=== PATIENT | female | born 1965 | race African-American/Black ===

== ENCOUNTER 2018-08-26 06:59 | Inpatient (IN) ==
--- NOTE | 2018-08-26 07:54 | PROVIDER DOCUMENTATION ---
HPI-General Adult - General Chief Complaint: General Adult Stated Complaint: LEG PAIN/ABD PAIN Time Seen by Provider: 08/26/18 07:43 Source: patient Allergies/Adverse Reactions: Patient Allergies Allergy/AdvReac Type Severity Reaction Status Date / Time amlodipine besylate * Allergy SWELLING Verified 12/20/17 07:18 [From [facility]] latex Allergy SWELLING Verified 12/20/17 07:18 lisinopril Allergy SWELLING Verified 12/20/17 07:18 Penicillins Allergy SWELLING Verified 12/20/17 07:18 Home Medications: Home Medication List Medication Instructions Recorded Confirmed Last Taken Type Hydrochlorothiazide 25 mg PO DAILY #30 tablet 04/20/16 12/20/17 07/06/16 Rx Aspirin EC 81 mg PO DAILY #0 tablet 04/21/16 12/20/17 07/06/16 Rx ATORVAstatin [Lipitor] 40 mg PO QHS 06/07/16 12/20/17 07/06/16 History Metoprolol Tartrate 25 mg PO BID 06/07/16 12/20/17 07/06/16 History Pantoprazole Sodium 40 mg PO DAILY 06/07/16 12/20/17 07/06/16 History Dexlansoprazole [Dexilant] 60 mg PO DAILY #30 cap 12/21/17 Unknown Rx Sucralfate [Carafate] 1 gm PO AC + HS #120 tab 12/21/17 Unknown Rx - History of Present Illness -Gen Adult Quality of Pain: reports: cramping Severity: reports: moderate Onset/Duration: reports: gradual, 5 days ago Timing: reports: still present Modifying Factors: improves with: other (AT NIGHT) Associated Symptoms: reports: cough, fatigue, muscle aches, weakness Similar Symptoms Previously?: No Recently seen or treated by another doctor?: No Review of Systems - Adult - REVIEW OF SYSTEMS - ADULT Constitutional: reports: fatique. denies: fever Eyes: reports: no symptoms reported Ears, Nose, Mouth & Throat: reports: no symptoms reported Cardiovascular: reports: no symptoms reported. denies: chest pain Respiratory: reports: cough Gastrointestinal: reports: no symptoms reported Genitourinary: reports: frequency Musculoskeletal: reports: frequent leg cramps Integumentary: denies: itching, rash Neurological: reports: tremors. denies: seizure, slurred speech Psychiatric: reports: no symptoms reported Hematologic/Lymphatic: reports: no symptoms reported Allergic/Immunologic: reports: no symptoms reported Past History - Adult - PAST MEDICAL HISTORY-ADULT Review of Records: reports: Nursing Assessment Review Major Childhood Illnesses: reports: denies history Cardiovascular: reports: CAD, HTN, other (1 heart stents). denies: blood clots Respiratory: reports: denies history Gastrointestinal: reports: cancer (colon) Obstetrical/Gynecological: reports: denies history Genitourinary: reports: denies history Musculoskeletal: reports: denies history Neurological: reports: denies history Endocrine/Immune: reports: denies history Other Conditions: reports: denies history - PRIOR SURGERIES/PROCEDURES Surgical/Procedure History: reports: cardiac stent, hysterectomy, other (cyst removed) - PRIOR HOSPITALIZATIONS Prior Hospitalizations: reports: none - IMMUNIZATION STATUS Childhood Immunizations: See Nurse Assessment Flu Vaccine: See Nurse Assessment - FAMILY HISTORY Family History: reviewed, not pertinent Physical Exam-General - PHYSICAL EXAM-ADULT Initial Vital Signs Reviewed: Yes - CONSTITUTIONAL General Appearance: alert, no apparent distress - EYES Eyes: PERRL/EOMI - HEAD, EARS, NOSE, MOUTH & THROAT HENMT: normocephalic/atraumatic - NECK Neck: non-tender, supple - RESPIRATORY Respiratory: lungs clear, normal breath sounds - CARDIOVASCULAR Cardiovascular: normal peripheral pulses, regular rate, rhythm - GASTROINTESTINAL (ABDOMEN) Abdominal Exam: normal bowel sounds, non tender, soft - LYMPHATIC Lymphatic: no adenopathy - MUSCULOSKELETAL Back Exam: no CVA tenderness, no vertebral tenderness - SKIN Integumentary: normal color, normal turgor - NEUROLOGIC Neurologic: stake setter II-XII nml as tested, grossly normal, no motor/sensory deficits - PSYCHIATRIC Psych/Mental Status: normal mood/affect Progress - PLAN OF CARE/RESULTS Progress/Plan/Lab Results: Vital Signs - 8 hr 08/26/18 07:10 Temperature 99.5 F Pulse Rate 104 H Respiratory Rate 18 Blood Pressure 119/89 O2 Sat by Pulse Oximetry 97 Orders Category Date Time Status CHEST-PORTABLE [RAD] Stat Exams 08/26/18 07:49 Ordered CBC WITH ELECTRONIC DIFF [HEME] Stat Lab 08/26/18 07:49 Uncollected CK PROFILE [SP CHEM] Stat Lab 08/26/18 07:49 Ordered COMPREHENSIVE METABOLIC PANEL [CHEM] Stat Lab 08/26/18 07:49 Ordered Flu [INFLUENZA SCREEN PL] Stat Lab 08/26/18 07:[address] W/POSS RFLX CULT [URINALYSIS] Stat Lab 08/26/18 07:49 Uncollected Result Diagrams: 08/26/18 08:00 08/26/18 08:00 - CONSULTS/PCP/HOSPITALIST Notification #1 *Consult/PCP/Hospitalist*: Dr. Trevizo Time Discussed: 09:32 Consult Disposition: Admit Departure - Departure Date of Disposition Decision: 08/26/18 Time of Disposition Decision: 09:32 DIAGNOSIS: New onset type 2 diabetes mellitus, Leg cramps Disposition: ADMITTED INPATIENT 09 Certified Medical Emergency: Emergent Condition: Stable Referrals and Follow-Ups: Xiomara Clayton MD [Primary Care Provider] - - Critical Care Note This patient required my direct & personal management of CC.: Yes Total Time (mins): 30 Critical Care Statement: This patient required my direct personal management to treat or rule out processes, the absence of which, could potentiallly result in sudden, clinically significant life or limb threatening deterioration. Attestation - Physician/ SONI Attestation The physician spent face to face time with patient:: Yes Advanced Practice Provider documentation review:: Supervising physician onsite and consulted in the evaluation and care of this patient. The physician did have a face to face encounter with the patient.
[2018-08-26 08:07] LABS: INFLUENZA A NEGATIVE (NEGATIVE); INFLUENZA B NEGATIVE (NEGATIVE)
[2018-08-26 08:12] LABS: BASO# 0.02 X1000 (0.0-0.2); BASO% 0.2 % (0.0-0.8); EOS# 0.17 X1000 (0.0-0.7); EOS% 1.5 % (0.0-10.0); HEMOGLOBIN 15.6 g/dL (12.0-16.0); IMM GRAN# 0.05 X1000 (0.0-0.04); IMM GRAN% 0.4 % (0.0-0.5); LYMPH# 2.11 X1000 (1.2-3.4); LYMPH% 18.3 % (20.5-51.1); MCH 30.6 PG (27-31); MCHC 36.3 g/dL (33-37); MCV 84.5 FL (81-99); MONO# 0.83 X1000 (0.11-0.59); MONO% 7.2 % (1.7-9.3); MPV 10.6 FL (7.4-10.4); NEUT# 8.35 X1000 (1.4-6.5); NEUT% 72.4 % (42.2-75.2); PLT 263 X1000 (130-400); RBC 5.09 XMIL (4.2-5.4); RDW 12.4 % (11.5-14.5); WBC 11.53 X1000 (4.8-10.8)
--- NOTE | 2018-08-26 08:20 | Diag Imaging Result Doc PS360 ---
EXAM: CHEST-2 VIEWS HISTORY: COUGH TECHNIQUE: Chest two views COMPARISON: 12/20/2017 FINDINGS: The lungs are well expanded. The heart is not enlarged. The vessels are not distended. There are no infiltrates. No pleural effusions. Mild scoliosis. IMPRESSION: No pneumonia. Electronically signed by Devyn Gilbert 08/26/2018 8:18 AM
[2018-08-26 08:50] LABS: ALBUMIN 3.8 g/dL (3.5-5.0); CALCIUM 9.3 mg/dL (8.8-10.2); CREATININE 1.2 mg/dL (0.5-0.9); POTASSIUM 3.4 mmol/L (3.5-5.1); TOTAL BILIRUBIN 0.6 mg/dL (0.20-1.00); TOTAL PROTEIN 7.5 g/dL (6.3-8.3)
[2018-08-26 09:11] LABS: BILIRUBIN URINE NEGATIVE (NEGATIVE); BLOOD URINE NEGATIVE (NEGATIVE); CLARITY CLEAR (CLEAR); COLOR YELLOW; KETONE URINE TRACE mg/dL (NEGATIVE); LEUKOCYTES URINE NEGATIVE (NEGATIVE); NITRITE URINE NEGATIVE (NEGATIVE); PROTEIN URINE NEGATIVE (NEGATIVE); SP GRAVITY URINE 1.005; UROBILINOGEN URINE NORMAL
[2018-08-26 09:11] LABS: CK INDEX 1.1 (0.0-2.5); CK-MB 2.44 ng/mL (0.0-5.0)
[2018-08-26 09:12] LABS: URINE EPITHELIAL CELLS <10 /HPF (<10); URINE RBC <10 /HPF (<10); URINE WBC <10 /HPF (<10)
[2018-08-26 09:13] LABS: URINE BACTERIA 1+ /HFP; URINE SOURCE CLEAN CATCH
[2018-08-26] MEDS ORDERED: NS 1,000 ML IV ONE (09:17)
[2018-08-26] MEDS ORDERED: HUMULIN R IV ONE ×2 (09:19→11:34)
[2018-08-26 09:47] LABS: HEMOGLOBIN A1C 11.6 % (4.8-6.0)
[2018-08-26] MEDS ORDERED: HUMULIN R (PARKWAY) ONE (09:48)
[2018-08-26] MEDS ORDERED: NS 1,000 ML ONE (10:43)
[2018-08-26] MEDS ORDERED: ZOFRAN IV PRN (11:07)
[2018-08-26] MEDS ORDERED: D50W SYRINGE IV PRN (11:34)
[2018-08-26] MEDS ORDERED: HUMULIN R 100 UNIT in NS 99 ML IV SCH (11:34)
[2018-08-26] MEDS ORDERED: POTASSIUM CHLORIDE 20 MEQ/SWI 20 MEQ/100 ML IVPB IV PRN (11:48)
[2018-08-26] MEDS ORDERED: SODIUM PHOSPHATE 30 MMOL in D5W 250 ML IV PRN (11:48)
[2018-08-26] MEDS ORDERED: NS 1,000 ML IV SCH (11:48)
[2018-08-26] MEDS ORDERED: POTASSIUM CHLORIDE 40 MEQ/SWI 40 MEQ/100 ML IVPB IV PRN (11:48)
[2018-08-26] MEDS ORDERED: MAGNESIUM SULFATE 2 GM/S.W.I. 2 GM/50 ML IVPB IV PRN (11:48)
[2018-08-26] MEDS ORDERED: LEVAQUIN 500 MG/D5W 500 MG/100 ML IVPB IV SCH (14:45)
[2018-08-26 15:00] LABS: POTASSIUM 3.6 mmol/L (3.5-5.1)
[2018-08-26 15:01] LABS: CALCIUM 7.9 mg/dL (8.8-10.2); PHOSPHORUS 1.9 mg/dL (2.7-4.5)
[2018-08-26] MEDS ORDERED: BASAGLAR SUBQ ONE (15:16)
[2018-08-26] MEDS ORDERED: HUMALOG SUBQ SCH (16:00)
[2018-08-26] MEDS: LEVAQUIN 500 MG/D5W 500 MG/100 ML IVPB IV SCH (18:24)
[2018-08-26] MEDS: PROTONIX PO SCH ×2 (18:27→22:10)
[2018-08-26] MEDS: POTASSIUM CHLORIDE 20 MEQ/SWI 20 MEQ/100 ML IVPB IV SCH (18:28)
[2018-08-26] MEDS: NS 1,000 ML IV SCH (18:28)
--- NOTE | 2018-08-26 19:56 | HISTORY AND PHYSICAL ---
PRIMARY CARE DOCTOR: Dr. Clayton. CHIEF COMPLAINT: Generalized body cramps and abdominal pain. HISTORY OF PRESENT ILLNESS: This is a 52-year-old female with a history of hypertension, CAD status post PTCA in 2016, colon cancer, asthma, gastroesophageal reflux disease. She presented to the emergency room complaining of lower abdominal pain, leg cramps, just generalized muscle aches and weakness. She was seen at a walk-in clinic on the and diagnosed with a UTI, given a prescription for Bactrim. She has taken that 2 days with no change in fact she feels she is getting worse. She states over the last 4 to 6 weeks that she has had increasing weakness, urinary frequency along with polydipsia. In fact she presented to the walk-in clinic for frequency thinking that she had a UTI. She was found to have a blood sugar of 754 with a hemoglobin A1c of 11.6. She denies any prior diagnoses of hyperglycemia or diabetes mellitus. In reviewing her chart as far back as 2013, blood sugars have been in the 111 to 190 range. PAST MEDICAL HISTORY: CAD status post PTCA in 2016, asthma, colon cancer, hypertension, gastroesophageal reflux disease. PAST SURGICAL HISTORY: Hysterectomy. SOCIAL HISTORY: She denies alcohol, tobacco, or illicit drug use. She is , she lives with her . She is a laboratory worker. ALLERGIES: Norvasc which causes swelling, lisinopril and penicillin that caused generalized body swelling and latex which causes swelling. HOME MEDICATIONS: A list will be obtained by the nursing staff and once confirmed for accuracy will review and start as appropriate. REVIEW OF SYSTEMS: Discussed with patient with pertinent positives stated in the HPI. She denied any syncope, dizziness, chest pain, palpitations, night sweats, recent weight loss or weight gain, any vomiting, diarrhea, constipation, black or bloody vomitus or stools, hematuria, dysuria. PHYSICAL EXAMINATION: GENERAL: This is a 52-year-old female who is sitting up in the bed in no distress. VITAL SIGNS: Blood pressure is 104/50 with a heart rate of 76, respirations are 18, temperature is 98.4 degrees oral with room air saturations 98-100%. HEENT: Pupils equal, round, react to light. EOMs are intact. Sclerae are anicteric. Head is normocephalic, atraumatic. Mucous membranes are moist. NECK: Supple with trachea midline. CARDIOVASCULAR: Regular rate and rhythm. S1, S2 appreciated. She has no lower extremity edema. Peripheral pulses are palpable x4 extremities. PULMONARY: Breath sounds are clear with no increased work of breathing noted. Chest rises and falls symmetric with respiration. Chest wall is nontender to palpation. GASTROINTESTINAL: Abdomen is soft, nontender, nondistended with bowel sounds in all 4 quadrants. GENITOURINARY: She has no CVAT nor suprapubic tenderness. SKIN: Warm and dry. NEUROLOGIC: She is alert and oriented x3. LABS: WBC is 11.5 with hemoglobin 15.6, hematocrit 43 and platelets of 263,000. Chemistry, sodium is 126, potassium 3.4, CO2 is 23 with a gap of 16, creatinine is 1.2 with a BUN of 14, glucose 754. Urinalysis is essentially negative with the exception of 3+ glucose. She is acetone positive. Flu A and B are negative. Chest x-ray reveals no pneumonia. Lungs are well expanded. Heart is not enlarged. Vessels are not distended. There are no infiltrates, no pleural effusions. ASSESSMENT AND PLAN: 1. Diabetic ketoacidosis. The patient will be admitted to ICU, placed on DKA protocol. 2. Hyponatremia secondary to #1 as stated above. 3. Acute kidney injury most likely secondary to intravascular volume depletion. We will continue with hydration and recheck labs. 4. Leukocytosis. Causes could be multifactorial. This could be secondary to diabetic ketoacidosis. Also urinary tract infection, she has been on Bactrim for 2 days. Urine culture is pending. 5. Hypertension. We will identify her home medications and continue these as appropriate. 6. Hyperlipidemia. Continue home medications. 7. Urinary tract infection. Levaquin 500 mg every 24 hours. 8. Recent diagnosis of sinusitis. Give Levaquin. 9. For deep vein thrombosis prophylaxis will use SCDs and gastrointestinal prophylaxis Protonix. We will check CBC, CMP, magnesium, and phosphorus in the morning. We will continue with IV hydration. Further treatments pending hospital course. Dictated by KANDY Smith for René Trevizo MD This chart was documented by, KANDY Smith and accurately reflects the services performed, treatment plan and medical decisions as attested by the providers signature René Trevizo MD. cc: KANDY Smith MD
[2018-08-26 20:53] LABS: MAGNESIUM 1.7 mg/dL (1.5-2.7); PHOSPHORUS 2.1 mg/dL (2.7-4.5); POTASSIUM 3.4 mmol/L (3.5-5.1)
[2018-08-26] MEDS: LOPRESSOR PO SCH (21:59)
[2018-08-26] MEDS: LIPITOR PO SCH (22:10)
[2018-08-26] MEDS: HUMALOG DOSE (PARKWAY) SUBQ SCH (22:10)
[2018-08-27] MEDS: NS 1,000 ML IV SCH (02:03)
--- NOTE | 2018-08-27 03:30 | HISTORY AND PHYSICAL ---
ADDENDUM: Patient was seen and examined by myself. Full note dictated and discussed with nurse practitioner. The patient presented to the hospital noting that she felt bad. On labs, she was noted to have a blood sugar of 754. She was not acidotic at that time. We admitted her to the hospital, placed her on insulin and IV fluids, and we will follow. She is not ketotic. cc: René Trevizo MD
[2018-08-27] MEDS: PROTONIX PO SCH ×2 (06:38→21:29)
[2018-08-27] MEDS: HUMALOG DOSE (PARKWAY) SUBQ SCH ×4 (06:38→21:29)
[2018-08-27 07:23] LABS: HEMOGLOBIN 12.7 g/dL (12.0-16.0); MCHC 34.3 g/dL (33-37); MCV 87.5 FL (81-99); MPV 10.3 FL (7.4-10.4); RBC 4.23 XMIL (4.2-5.4); RDW 12.5 % (11.5-14.5); WBC 7.22 X1000 (4.8-10.8)
[2018-08-27 07:37] LABS: AGAP 10; ALKALINE PHOSPHATASE 159 U/L (32-104); BUN 11 mg/dL (8-22); CALCIUM 8.1 mg/dL (8.8-10.2); CHLORIDE 102 mmol/L (98-107); COSMO 281; CREATININE 0.8 mg/dL (0.5-0.9); ESTIMATED GFR > 60; GLUCOSE 379 mg/dL (70-104); GOT 26 U/L (10-30); GPT 24 U/L (10-36); MAGNESIUM 1.8 mg/dL (1.5-2.7); PHOSPHORUS 2.1 mg/dL (2.7-4.5); POTASSIUM 3.7 mmol/L (3.5-5.1); SODIUM 133 mmol/L (136-145); TCO2 22 mmol/L (25-35); TOTAL PROTEIN 5.6 g/dL (6.3-8.3)
[2018-08-27] MEDS ORDERED: LINZESS PO ONE ×3 (08:02→12:45)
[2018-08-27] MEDS: GLUCOPHAGE PO SCH ×2 (08:30→16:24)
[2018-08-27] MEDS: LOPRESSOR PO SCH (08:30)
[2018-08-27] MEDS: ASPIRIN EC PO SCH (08:30)
[2018-08-27] MEDS ORDERED: ASPIRIN EC PO SCH (09:00)
[2018-08-27] MEDS: POTASSIUM CHLORIDE 20 MEQ/SWI 20 MEQ/100 ML IVPB IV SCH (12:48)
[2018-08-27] MEDS: LEVAQUIN 500 MG/D5W 500 MG/100 ML IVPB IV SCH (18:13)
[2018-08-27] MEDS: LIPITOR PO SCH (21:29)
--- NOTE | 2018-08-28 03:17 | PROGRESS NOTE ---
DATE: 08/27/2018 SUBJECTIVE: The patient has no complaints. Denies any chest pain or palpitations. Denies any GI or issues. PHYSICAL EXAMINATION: Vital Signs: Temperature 98.3, pulse 89, respiratory 20, BP 123/74. General: Patient is currently in no respiratory distress. HEENT: Normocephalic, atraumatic. ELICIA. Neck: Supple. Cardiovascular: Regular rate. Chest: Clear and nonlabored. Abdomen: Soft and nondistended. Extremities: Moves all extremities. Neurologic: No changes. Skin: Warm, dry. No rashes. ASSESSMENT: 1. New onset diabetes. Blood sugars are stable. A1c is markedly elevated at 11.4. 2. Hyponatremia. 3. Leukocytosis. 4. Hypertension. 5. Hyperlipidemia. PLAN: We will continue the patient in the hospital. We will add Glucophage to her medications. We will continue to follow. We will ask nutrition to go over her diet with her. Hopefully, she can be discharged home this afternoon. cc: René Trevizo MD
[2018-08-28 05:13] VITALS: BP 120/65
[2018-08-28] MEDS: HUMALOG DOSE (PARKWAY) SUBQ SCH (06:24)
[2018-08-28] MEDS: PROTONIX PO SCH (06:25)
[2018-08-28] MEDS: GLUCOPHAGE PO SCH (08:04)
[2018-08-28] MEDS: ASPIRIN EC PO SCH (08:04)
[2018-08-28] MEDS ORDERED: LEVAQUIN PO SCH (09:00)
--- NOTE | 2018-08-29 05:54 | DISCHARGE SUMMARY ---
ADMISSION DATE: 08/26/2018 DISCHARGE DATE: 08/28/2018 DIAGNOSES: 1. New-onset diabetes, with a hemoglobin A1c at 11.4. 2. Hyponatremia, resolved. 3. Leukocytosis, resolved. 4. Hypertension. 5. Hyperlipidemia. 6. Urinary tract infection. DIAGNOSTICS: Chest x-ray revealed no pneumonia. Lungs are well-expanded. Heart is not enlarged. Vessels are not distended. There are no infiltrates, no pleural effusions. MICROBIOLOGY: Urine culture revealed no growth. HOSPITAL COURSE: Ms. Nixon presented to the emergency room complaining of generalized body cramps, abdominal pain. She had been diagnosed with a UTI at a walk-in clinic 2 or 3 days prior to admission. She was placed on Bactrim. She did take it as directed, although her symptoms worsened, therefore prompting her arrival to the emergency room. She was found to have a blood sugar of 754, with a hemoglobin A1c of 11.6. She denied any diagnosis of hyperglycemia or diabetes mellitus. She received insulin, as well as IV hydration. Thankfully, insulin drip was able to be weaned off. Her blood sugars have remained in the 170s to 200 range. Thankfully, the insulin drip was able to be weaned off. She had no more generalized body cramps or abdominal pain, and creatinine was 1.2 on admission. It is 0.8 today. DISCHARGE PHYSICAL EXAMINATION: Cardiovascular: Regular rate and rhythm. S1, S2 appreciated. Pulmonary: Breath sounds are clear. No increased work of breathing noted. Gastrointestinal: Abdomen is soft, nontender, nondistended. Bowel sounds in all 4 quadrants. Neurologic: She is alert and oriented x3. DISCHARGE VITAL SIGNS: Blood pressure is 120/65, with a heart rate of 81. Respirations are 20. Temperature 97.5 degrees, with room air saturation 100%. DISCHARGE MEDICATIONS: Lipitor 40 mg p.o. at bedtime, metoprolol tartrate 25 mg p.o. b.i.d., pantoprazole 40 mg p.o. daily, enteric-coated aspirin 81 mg daily, metformin 500 mg p.o. b.i.d., Levaquin 500 mg p.o. daily for 4 days. She was given prescriptions for a One-Touch meter, as well as supplies. FOLLOWUP: An appointment was scheduled with: 1. Dr. Clayton on 09/03/2018, at 10:30. 2. Yolanda Curtis dietitian. She will call and schedule an appointment for further education. DISPOSITION: She is being discharged home in stable condition with family members. TIME SPENT: This is a greater than 30 minute discharge. DISCHARGE INSTRUCTIONS: The patient was instructed to call to be seen sooner, or return to the emergency room for any recurrence of symptoms, any dizziness, syncope, chest pain, palpitations, shortness of breath, cough, a temperature greater than 101, for any nausea, vomiting, diarrhea, constipation, black or bloody vomitus or stools, any hematuria, dysuria, frequency, urgency, or for any questions or concerns she may have. Dictated by KANDY Smith for René Trevizo MD This chart was documented by, KANDY Smith and accurately reflects the services performed, treatment plan and medical decisions as attested by the providers signature René Trevizo MD. cc: KANDY Smith MD
--- NOTE | 2018-08-29 06:43 | DISCHARGE SUMMARY ---
ADMISSION DATE: 08/26/2018 DISCHARGE DATE: 08/28/2018 DISCHARGE DIAGNOSES: 1. New onset diabetes. 2. Obesity. 3. Abdominal pain, resolved. 4. Hyponatremia, resolved. 5. Acute kidney injury, resolved. 6. Leukocytosis, resolved. 7. Hypertension. 8. Hyperlipidemia. 9. Urinary tract infection. CONSULTATION: None. PROCEDURES: Possible. BRIEF HOSPITAL COURSE: Patient is a 52-year-old female who presented to [facility] ER secondary to nausea, vomiting, and abdominal pain. She was subsequently diagnosed with diabetes. She had an A1c of 11.4. She was placed in the hospital initially on insulin, switched over to Glucophage. The dietitian was consulted. On discharge, patient's blood sugars actually are in the mid 100s to low 200s just on Glucophage. Given that she is new onset diabetic, we will not discharge her home on insulin currently, as her blood sugars are much improved. I did discuss with her the importance of controlling her diet and hopefully, she will not have to go on insulin. She will continue to follow, and she will follow up outpatient with her primary care in the next couple weeks, and will adjust her medications as needed. cc: René Trevizo MD
== END 2018-08-28 10:15 | disposition home or self-care (01) | DRG 683 ==
LOC: P.ED 06:59 → EDIPHOLD 07:00 → P.MEDSURG 16:14
PROVIDERS: ATTEND Family Medicine
CPT/HCPCS: 71020; 71046; 80048; 80053; 81001; 82009; 82550; 82553; 82948; 83036; 83735; 84100; 85025; 85027; 87088; 87275; 87276; 87804; 96361; 96365; 96366; 96368; 99285; 99291; A9270; J1815; J1956; J3480; J7030; XXXXX